=== PATIENT | female | born 1980 | race American Indian/Alaskan Native ===

== ENCOUNTER 2020-07-29 08:47 | Outpatient (CLI) | payer OTHER ==
--- NOTE | 2020-07-29 10:44 | Mammography Report ---
DIGITAL SCREENING MAMMOGRAM, 07/29/2020 CLINICAL INFORMATION / INDICATION: Routine screening mammography. SCREENING MAMMO TECHNIQUE: Digital bilateral 2D mammography was obtained in the craniocaudal and mediolateral obliqu e projections. COMPARISON: Baseline FINDINGS: Breast Density: There are scattered areas of fibroglandular density. No dominant mass, suspicious calcifications, or architectural distortion in either breast. IMPRESSION: No mammographic evidence of malignancy. Follow up recommendation: Routine yearly BI-RADS Category 1: Negative. A "normal" or negative report should not discourage follow up or biopsy of a clinically significant f inding. A written summary of these findings will be mailed to the patient. The patient will be entered into a mammography reporting system which will generate a reminder letter for the patient's next appointmen t at the appropriate interval. The [employer] recommends yearly mammograms starting at age 40 and continuing as l [place] as a woman is in good health. Breast MRI is recommended for women with an approximate 20-25% or greater lifetime risk of breast cancer, including women with a strong family history of breast or ova vibha cancer or who have been treated for Hodgkin's disease. Signer Name: Sandy Thomas MD Signed: 07/29/2020 10:39 AM Workstation Name: [id number]
== END 2020-07-29 08:48 | disposition home or self-care (01) ==
LOC: SPVWC 08:47
PROVIDERS: ATTEND Advanced Practice Midwife
DX: Z12.31 Encounter for screening mammogram for malignant neoplasm of breast (principal)
CPT/HCPCS: 77067

== ENCOUNTER 2021-08-04 08:32 | Outpatient (CLI) | payer OTHER ==
--- NOTE | 2021-08-04 17:28 | Mammography Report ---
DIGITAL SCREENING MAMMOGRAM WITH CAD, 08/04/2021 CLINICAL INFORMATION / INDICATION: Routine screening mammography. SCREENING MAMMOGRAM TECHNIQUE: Digital bilateral 2D mammography was obtained in the craniocaudal and mediolateral obliqu e projections. This examination was interpreted with the benefit of Computer-Aided Detection analysis . COMPARISON: 07/29/2020 FINDINGS: Breast Density: There are scattered areas of fibroglandular density. No dominant mass, suspicious calcifications, or architectural distortion in either breast. IMPRESSION: No mammographic evidence of malignancy. Follow up recommendation: Routine yearly BI-RADS Category 1: NEGATIVE A "normal" or negative report should not discourage follow up or biopsy of a clinically significant f inding. A written summary of these findings will be mailed to the patient. The patient will be entered into a mammography reporting system which will generate a reminder letter for the patient's next appointmen t at the appropriate interval. The [employer] recommends yearly mammograms starting at age 40 and continuing as l [place] as a woman is in good health. Breast MRI is recommended for women with an approximate 20-25% or greater lifetime risk of breast cancer, including women with a strong family history of breast or ova vibha cancer or who have been treated for Hodgkin's disease. Signer Name: Tio Grayson MD Signed: 08/04/2021 5:23 PM Workstation Name: [id number]
== END 2021-08-04 08:33 | disposition home or self-care (01) ==
LOC: SPVWC 08:32
PROVIDERS: ATTEND Advanced Practice Midwife
DX: Z12.31 Encounter for screening mammogram for malignant neoplasm of breast (principal)
CPT/HCPCS: 77063; 77067

== ENCOUNTER 2021-08-09 11:11 | Outpatient (CLI) | payer OTHER ==
--- NOTE | 2021-08-09 14:05 | Ultrasound Report ---
ULTRASOUND PELVIS, COMPLETE INDICATION: Pelvic pain COMPARISON: No relevant prior imaging study available. TECHNIQUE: Transabdominal and transvaginal imaging was performed. FINDINGS: Uterus: Uterus measures 11.6 cm in length. Endometrial echo complex measures 6 mm. There are several heterogeneously hypoechoic lesions, the largest of which measures 2.7 cm in maximum diameter at the f undus. These are consistent with fibroids. Right ovary: No significant abnormality. Flow is seen to the right ovary. Left ovary: There is a 4.3 cm avascular hypoechoic lesion. Flow is seen to the left ovary. Additional findings: Within the vaginal wall there is a hypoechoic lesion measuring 4.4 cm, no flow i s seen within this. IMPRESSION: 1. Uterine fibroids. 2. 4.3 cm complex left ovarian cyst. 3. 4.4 cm avascular hypoechoic lesion within the vaginal wall may be a complex cyst. Signer Name: Noé Coulter MD Signed: 08/09/2021 2:01 PM Workstation Name: [id number]
== END 2021-08-09 11:12 | disposition home or self-care (01) ==
LOC: US 11:11
PROVIDERS: ATTEND Advanced Practice Midwife
DX: D25.9 Leiomyoma of uterus, unspecified (principal); N83.202 Unspecified ovarian cyst, left side
CPT/HCPCS: 76830; 76856